=== PATIENT | male | born 1960 | race African-American/Black ===

== ENCOUNTER 2023-03-12 16:35 | Inpatient (IN) | payer OTHER ==
[2023-03-12] MEDS ORDERED: Ipratropium/Albuterol 3 ML NEB ONE ×2 (16:45→17:25)
[2023-03-12] MEDS ORDERED: methylPREDNISolone Sod Succ/PF 125 MG/2 ML VIAL ONE (17:18)
[2023-03-12] MEDS ORDERED: Magnesium 2 GM/50 ML BAG (IN WATER) ONE (17:31)
[2023-03-12 17:45] LABS: ALT (SGPT) 19 U/L (8-55); AST (SGOT) 18 U/L (5-34); Albumin 3.7 g/dL (3.4-4.8); Alkaline Phosphatase 85 U/L (40-110); Anion Gap 15 mmol/L (10-20); BUN (Urea Nitrogen) 15 mg/dL (8.4-25.7); Bilirubin, Total 0.3 mg/dL (0.2-1.2); Calc. Creatinine Clearance 0 mL/min (70-130); Calcium 8.9 mg/dL (7.8-10.44); Carbon Dioxide 27 mmol/L (23-31); Chloride 100 mmol/L (98-107); Estimated GFR 71; Globulin 2.7 g/dL (2.4-3.5); Glucose 105 mg/dL (80-115); Magnesium 1.9 mg/dL (1.6-2.6); Potassium 4.6 mmol/L (3.5-5.1); Protein, Total 6.4 g/dL (5.8-8.1); Sodium 137 mmol/L (136-145)
[2023-03-12 17:49] LABS: #Eosinphils 0.1 10x3/uL (0.0-0.5); #Monocytes 0.7 10x3/uL (0.0-1.1); #Neutrophils 4.3 10x3/uL (1.5-8.4); %Basophils 0.2 % (0.0-2.0); %Neutrophils 73.3 % (40.0-75.0); Hematocrit 40.1 % (38.8-50.0); Hemoglobin 12.5 g/dL (13.5-17.5); Mean Corpuscular HGB CONC 31.2 g/dL (32.0-36.0); Mean Corpuscular Hemoglobin 26.4 pg (27.0-33.0); Mean Corpuscular Volume 84.8 fl (81.2-95.1); Mean Platelet Volume 11.2 fl (7.4-10.4); Platelet Count 234 10x3/uL (150-450); RBC Distribution Width 15.9 % (11.5-14.5); Red Blood Cell (RBC) Count 4.73 10x6/uL (4.32-5.72); Troponin I Less than 0.010 ng/mL (< 0.028); White Blood Cell (WBC) Count 5.9 10x3/uL (3.5-10.5)
[2023-03-12 18:05] LABS: SARS-CoV-2 NAA Rapid Test Not Detected (NotDetected)
[2023-03-12] MEDS ORDERED: Azithromycin 500 MG VIAL ONE (19:33)
[2023-03-12] MEDS ORDERED: Ipratropium/Albuterol 3 ML NEB NEB PRN (20:24)
[2023-03-12] MEDS ORDERED: Acetaminophen 325 MG TAB PO PRN (20:28)
[2023-03-12] MEDS ORDERED: Acetaminophen 650 MG Suppository PR PRN (20:28)
[2023-03-12] MEDS ORDERED: Guaifenesin DM 100-10/5 ML UDCUP PO PRN (20:28)
[2023-03-12] MEDS ORDERED: Ondansetron ODT 4 MG TAB PO PRN (20:28)
[2023-03-12] MEDS ORDERED: Bisacodyl 5 MG TAB PO PRN (20:28)
[2023-03-12] MEDS ORDERED: Ondansetron PF 4 MG/2 ML Vial IVP PRN (20:28)
[2023-03-12] MEDS ORDERED: Loperamide HCl 2 MG CAP PO PRN ×2 (20:28)
[2023-03-12] MEDS ORDERED: Senokot S 8.6-50 MG TAB PO PRN (20:28)
[2023-03-12] MEDS ORDERED: cefTRIAXone (ROCEPHIN) 1 GM VIAL ONE (20:39)
[2023-03-12] MEDS ORDERED: HumaLOG 300 UNITS/3 ML VIAL SC PRN (20:50)
[2023-03-12] MEDS ORDERED: Glucagon 1 MG/ML KIT IM PRN (20:50)
[2023-03-12] MEDS ORDERED: Dextrose 50% Abboject 50 ML SYRINGE SLOW IVP PRN (20:50)
[2023-03-12] MEDS ORDERED: Sodium Chloride 0.65% Nasal 44 ML BOT EA NARE PRN (20:50)
[2023-03-12] MEDS ORDERED: Loratadine 10 MG TAB PO PRN (20:50)
[2023-03-12] MEDS ORDERED: Benzonatate 100 MG CAP PO PRN (20:50)
[2023-03-12] MEDS ORDERED: Artificial Tear Sol 15 ML BOT EA EYE PRN (20:50)
[2023-03-12] MEDS ORDERED: diphenhydrAMINE 25 MG CAP PO PRN (20:50)
[2023-03-12] MEDS ORDERED: Calcium Carbonate 500 MG ChewTAB PO PRN (20:50)
[2023-03-12] MEDS ORDERED: Dextrose 5% in Water 1,000 ML IV PRN (20:50)
[2023-03-12] MEDS ORDERED: Ibuprofen 200 MG TAB PO PRN (20:50)
[2023-03-12] MEDS ORDERED: Moisturizing Cream (Eucerin) 113 GM JAR TOP PRN (20:50)
[2023-03-12] MEDS ORDERED: Furosemide 40 MG/4 ML VIAL SLOW IVP SCH (22:15)
[2023-03-12] MEDS ORDERED: Famotidine 20 MG TAB PO SCH (22:15)
[2023-03-12 22:20] VITALS: BMI 40.6
[2023-03-12] MEDS ORDERED: Mometasone/Formoterol 60 PUFF AER INH SCH (22:30)
[2023-03-12] MEDS: Ipratropium/Albuterol 3 ML NEB NEB SCH (22:36)
[2023-03-12] MEDS: LevoFLOXacin 750 mg/D5W 750 MG in Premix Bag 1 BAG IVPB SCH (23:01)
[2023-03-12] MEDS: Nicotine 14 MG PATCH TD SCH (23:03)
[2023-03-12] MEDS: methylPREDNISolone Sod Succ 40 MG VIAL IVP SCH (23:40)
[2023-03-12 23:57] LABS: Amphetamine Not Detected (NotDetected); Barbiturates Screen Not Detected (NotDetected); Benzodiazepine Screen Detected (NotDetected); Cocaine Metabolite Screen Not Detected (NotDetected); Methadone Not Detected (NotDetected); Methamphetamine Not Detected (NotDetected); Opiate Screen Not Detected (NotDetected); Oxycodone Screen Not Detected (NotDetected); Phencyclidine (PCP) Not Detected (NotDetected); THC/Cannabinoid Screen Not Detected (NotDetected); Tricyclic Screen Not Detected (NotDetected)
[2023-03-13] MEDS: Ipratropium/Albuterol 3 ML NEB NEB SCH ×6 (02:58→22:39)
[2023-03-13] MEDS: HumaLOG 300 UNITS/3 ML VIAL SC PRN ×3 (05:06→21:11)
[2023-03-13] MEDS: methylPREDNISolone Sod Succ 40 MG VIAL IVP SCH ×4 (05:14→22:56)
[2023-03-13 06:23] LABS: Actual Bicarbonate (HCO3v) 28.3 mEq/L (22-28); Calcium, Ionized (venous) 1.17 mmol/L (1.16-1.32); Chloride (VBG) 99 mmol/L (98-106); Hematocrit-VBG 39 % (42.0-52.0); Hemoglobin (Hb) 13.4 g/dL (13.1-17.2); Puncture Site Other Site; RapidComm Collect By CBN; Sodium 137 mmol/L (133-146); pH (venous) 7.317 (7.32-7.43)
[2023-03-13] MEDS ORDERED: FLU VACC QS2023-24(6MOS UP)/PF 60 MCG/0.5 ML SYRINGE IM ONE (09:00)
[2023-03-13] MEDS: Famotidine 20 MG TAB PO SCH ×2 (09:10→21:13)
[2023-03-13] MEDS: metFORMIN 500 MG TAB PO SCH ×2 (09:11→18:09)
[2023-03-13] MEDS: Mometasone/Formoterol 60 PUFF AER INH SCH ×2 (11:30→19:44)
[2023-03-13] MEDS ORDERED: hydrALAZINE 20 MG/ML VIAL SLOW IVP PRN (15:18)
[2023-03-13] MEDS: Lantus 1000 UNITS/10 ML VIAL SC SCH (21:11)
[2023-03-13] MEDS: LevoFLOXacin 750 mg/D5W 750 MG in Premix Bag 1 BAG IVPB SCH (22:51)
[2023-03-13] MEDS: Nicotine 14 MG PATCH TD SCH (23:03)
[2023-03-14] MEDS: Ipratropium/Albuterol 3 ML NEB NEB SCH ×6 (02:54→23:45)
[2023-03-14 06:12] LABS: #Monocytes 0.4 10x3/uL (0.0-1.1); #Neutrophils 8.6 10x3/uL (1.5-8.4); %Lymphocytes 5.6 % (18.0-47.0); %Monocytes 3.9 % (0.0-10.0); %Neutrophils 89.9 % (40.0-75.0); Hematocrit 32.3 % (38.8-50.0); Hemoglobin 10.5 g/dL (13.5-17.5); Mean Corpuscular HGB CONC 32.5 g/dL (32.0-36.0); Mean Corpuscular Hemoglobin 26.6 pg (27.0-33.0); Mean Platelet Volume 10.8 fl (7.4-10.4); Platelet Count 226 10x3/uL (150-450); RBC Distribution Width 15.6 % (11.5-14.5); Red Blood Cell (RBC) Count 3.94 10x6/uL (4.32-5.72); White Blood Cell (WBC) Count 9.5 10x3/uL (3.5-10.5)
[2023-03-14] MEDS: Mometasone/Formoterol 60 PUFF AER INH SCH ×2 (07:17→20:55)
[2023-03-14] MEDS: methylPREDNISolone Sod Succ 40 MG VIAL IVP SCH ×4 (07:40→19:08)
[2023-03-14] MEDS: HumaLOG 300 UNITS/3 ML VIAL SC PRN ×3 (07:40→19:27)
[2023-03-14] MEDS: Famotidine 20 MG TAB PO SCH ×3 (08:28→20:50)
[2023-03-14] MEDS: metFORMIN 500 MG TAB PO SCH ×2 (08:28→19:04)
[2023-03-14] MEDS ORDERED: Amlodipine 5 MG TAB PO SCH (09:00)
[2023-03-14] MEDS ORDERED: Mag-Al Plus 1200 MG/1200 MG/120 MG/30 ML UDCUP PO PRN (09:40)
[2023-03-14 13:10] LABS: Hemoglobin A1c 8.5 % (4.0-6.0)
[2023-03-14] MEDS: LevoFLOXacin 750 mg/D5W 750 MG in Premix Bag 1 BAG IVPB SCH (20:50)
[2023-03-14] MEDS: Lantus 1000 UNITS/10 ML VIAL SC SCH (20:50)
[2023-03-15] MEDS: Nicotine 14 MG PATCH TD SCH ×2 (00:04→05:30)
[2023-03-15] MEDS: methylPREDNISolone Sod Succ 40 MG VIAL IVP SCH ×2 (00:04→05:04)
[2023-03-15 02:26] VITALS: TEMP 98
[2023-03-15] MEDS: Ipratropium/Albuterol 3 ML NEB NEB SCH (04:10)
[2023-03-15 07:59] VITALS: BP 163/79
== END 2023-03-15 07:30 | disposition home or self-care (01) | DRG 191 ==
LOC: CSHERS 16:35 → CSHTELE 21:51 → INTOOBSV 21:51 → OBSVTOIN 03-14 08:18
PROVIDERS: ADMIT Family Medicine; ATTEND Internal Medicine
PROC: 5A09457 Assistance with Respiratory Ventilation, 24-96 Consecutive Hours, Continuous Positive Airway Pressure (ICD-10-PCS; principal; 2023-03-12)
DX: J44.1 Chronic obstructive pulmonary disease with (acute) exacerbation (principal); Z68.41 Body mass index [BMI] 40.0-44.9, adult; G47.33 Obstructive sleep apnea (adult) (pediatric); E11.9 Type 2 diabetes mellitus without complications; I11.0 Hypertensive heart disease with heart failure; E66.01 Morbid (severe) obesity due to excess calories; Z20.822 Contact with and (suspected) exposure to COVID-19; I50.9 Heart failure, unspecified; Z98.890 Other specified postprocedural states; Z82.49 Family history of ischemic heart disease and other diseases of the circulatory system; Z83.3 Family history of diabetes mellitus; Z88.2 Allergy status to sulfonamides; Z88.0 Allergy status to penicillin; Z99.81 Dependence on supplemental oxygen
CPT/HCPCS: 36415; 36416; 71045; 80053; 80306; 80307; 82805; 83036; 83735; 83880; 84484; 85025; 93005; 94640; 94660; 94664; 94760; 96365; 96367; 96375; 96376; G0378; J0456; J0696; J1650; J1815; J1940; J1956; J2920; J2930; J3475; J7620